=== PATIENT | female | born 1945 | race Caucasian/White ===

== ENCOUNTER → 2017-10-17 | Outpatient (REF) | payer MEDICARE ==
[~2017-10-17] MED LIST: DILT120T11 PO; LEVO50TA86 PO; LOSA50TA72 PO
== END ==
LOC: ZZSENDIN 12:00
PROVIDERS: ATTEND Ophthalmology
DX: L72.0 Epidermal cyst (principal)
CPT/HCPCS: 88305

== ENCOUNTER → 2018-07-16 | Outpatient (CLI) | payer MEDICARE ==
[~2018-07-16] MED LIST changes: +CLOB15OI16 TP; +ESTR1POW41 MC; +ESTR42.5 PV; +LIDO5JEL3 MM; -LOSA50TA72 PO; +LOSA50TA74 PO
== END ==
LOC: US 01:24
PROVIDERS: ATTEND Internal Medicine Clinical Cardiac Electrophysiology
DX: I47.1 Supraventricular tachycardia (principal)
CPT/HCPCS: 93306